=== PATIENT | male | born 1975 ===

== ENCOUNTER 2018-09-11 15:32 | Emergency (ER) | payer OTHER ==
[2018-09-11 16:12] VITALS: TEMP 99
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
[2018-09-11 20:13] VITALS: BP 103/70; PULSE 72; RESP 18
[2018-09-11 21:48] VITALS: O2SAT 99
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
== END 2018-09-11 20:12 | disposition home or self-care (01) ==
LOC: C.ER 15:32
DX: S16.1XXA Strain of muscle, fascia and tendon at neck level, initial encounter (principal); S30.0XXA Contusion of lower back and pelvis, initial encounter; V49.40XA Driver injured in collision with unspecified motor vehicles in traffic accident, initial encounter